=== PATIENT | female | born 1980 | race Caucasian/White ===

== ENCOUNTER 2018-08-26 13:20 | Emergency (ER) | payer SELFPAY ==
[~2018-08-26] VITALS: Ht 154.9 cm; Wt 61.4 kg
[2018-08-26] MEDS ORDERED: CYCLOBENZAPRINE HCL 10 MG TABLET PO ONE (14:30)
[2018-08-26] MEDS ORDERED: IBUPROFEN 600 MG TABLET PO ONE (14:30)
[2018-08-26 15:31] VITALS: BP 109/79
[2018-08-26] MEDS ORDERED: PERTUSS(ACELL),DIPH,TET VAC/PF 0.5 ML VIAL IM ONE (15:45)
== END 2018-08-26 16:19 | disposition home or self-care (01) ==
LOC: EMS 13:39
DX: S16.1XXA Strain of muscle, fascia and tendon at neck level, initial encounter (principal); S46.911A Strain of unspecified muscle, fascia and tendon at shoulder and upper arm level, right arm, initial encounter; S50.811A Abrasion of right forearm, initial encounter; V43.62XA Car passenger injured in collision with other type car in traffic accident, initial encounter; Y93.89 Activity, other specified; Y92.89 Other specified places as the place of occurrence of the external cause; Y99.8 Other external cause status
CPT/HCPCS: 72040; 90471; 90715; 99284